=== PATIENT | male | born 1995 | race Caucasian/White ===

== ENCOUNTER → 2016-12-27 | Outpatient (CLI) | payer BC ==
[~2016-12-27] MED LIST: BENA25CA2 PO; CYCL5TA PO; GABA-282 PO; IBUP80TA PO; INDO50SU2 PR; LIDO5DIS41 TD; MELA1CAP2 PO; META1TAB22 PO; MULT1CHW21 PO; RANI150T PO; TRAM50TA2 PO; [UNRECOGNIZED DRUG - OTHER] PO; [UNRECOGNIZED DRUG - REMARK] INJ
--- NOTE | 2017-01-16 01:54 | ECWPNPC ---
PATIENT NAME: BISHNU DALLAS : 1995 GENDER: MALE VISIT DATE: 12/27/2016 DISCHARGE DATE: 12/27/16 1148 VISIT LOCKED DATE TIME: PHYSICIAN: KELLE VILLALBA RESOURCE: KELLE VILLALBA REASON FOR APPOINTMENT 1. CHEST HISTORY OF PRESENT ILLNESS TODAY'S VISIT: NOTES: HAS HAD CRYOTHERAPY X 1 SINCE LAST VISIT. GETS ABOUT 3-4 MONTHS.HAS HAD GOOD ROM OF LEFT SHOULDER. STILL HAS ISSUES WITH SLEEP.. CURRENT MEDICATIONS TAKING BENADRYL 25 MG CAPSULE 1 CAPSULE NEEDED ORALLY EVERY 6 HRS, NOTES: 06/01/16 2300 TAKING LIDODERM 5 % PATCH 1 PATCH TO INTACT SKIN REMOVE AFTER 12 HOURS EXTERNALLY ONCE A DAY, NOTES: 2 DAYS AGO TAKING MELATONIN 5 MG TABLET 1 TABLET AT BEDTIME NEEDED WITH FOOD ORALLY ONCE A DAY, NOTES: 06/01/16 2300 TAKING MULTIVITAMIN 1 TABLETS 1 TAB(S) ORALLY DAILY, NOTES: 1 WEEK TAKING IBUPROFEN 800 MG TABLET 1 TABLET ORALLY PRN, NOTES: 06/01/16 1400 TAKING ALBUTEROL SULFATE HFA 108 (90 BASE) MCG/ACT AEROSOL SOLUTION 2 PUFFS NEEDED INHALATION EVERY 4 HRS, NOTES: NONE RECENTLY TAKING TRAMADOL HCL 50 MG TABLET 1 TABLET NEEDED ORALLY EVERY 6- 8 HR SPRN PAIN MDD=3 TAKING ACETAMINOPHEN 325 MG TABLET 2 TABLETS NEEDED ORALLY EVERY 6 HRS NOT-TAKING METAXALONE 800 MG TABLET 1 TABLET ORALLY THREE TIMES A DAY, NOTES: 06/01/16 0900 NOT-TAKING TESSALON PERLES 100 MG CAPSULE 1 CAPSULE NEEDED ORALLY THREE TIMES A DAY MEDICATION LIST REVIEWED AND RECONCILED WITH THE PATIENT PAST MEDICAL HISTORY ASTHMA BROKEN LEFT WRIST COSTROCHODRITIS CONCUSSION ALLERGIES AUGMENTIN: HIVES: ALLERGY ENVIRONMENTAL: HIVES/DIFFICULTY BREATHING: ALLERGY REVIEW OF SYSTEMS FOLLOW-UP ROS: CARDIOLOGY: DENIES PALPITATIONS . INTEGUMENT NO UNUSUAL RASH OR CHANGING LESIONS . GASTROENTEROLOGY: NO NAUSEA, VOMITING, DIARRHEA, CONSTIPATION, MELENA, HEMATOCHEZIA . GI/ NEGATIVE FOR, ABDOMINAL PAIN, NAUSEA, VOMITING . NEUROLOGY: GOT STRUCK IN HEAD WITH CHAIR - CONCUSSION - HAS BEEN REFERRED TO NEUROLOGY . PSYCHOLOGY: NO RECENT DEPRESSED MOOD . VITAL SIGNS WT 200.6 LBS, HT 65 IN, BMI 33.38 INDEX, BP 142/76 MM HG, HR 75 /MIN, RR 18 /MIN, TEMP 98.0 F, OXYGEN SAT % 99%, NA INITIALS SC 10:48. ASSESSMENTS COSTOCHONDRITIS - M94.0 (PRIMARY) MYALGIA - M79.1 TREATMENT COSTOCHONDRITIS NOTES: CONTINUE TO FOLLOW WITH [facility] FOR CRYOTHERAPY. USE TRAMADOL NEEDED FOR PAIN. PROCEDURE CODES FA211 ESTABILISHED PATIENT [facility] CHARGE DISPOSITION & COMMUNICATION FOLLOW UP 6 MONTHS (REASON: CHEST WALL PAIN) ELECTRONICALLY SIGNED BY MUNDO AMOS ON 01/15/2017 AT 05:39 PM EDT DISCLAIMER : THIS IS A VISIT SUMMARY EXTRACTED FROM THE [employer] CHART. IT IS NOT A COPY OF THE [employer] PROGRESS NOTE. MALISSAD
== END ==
LOC: M PAIN 11:00
PROVIDERS: ATTEND Nurse Practitioner Family
DX: M94.0 Chondrocostal junction syndrome [Tietze] (principal); M79.1 Myalgia; Z79.899 Other long term (current) drug therapy; Z79.891 Long term (current) use of opiate analgesic; Z88.1 Allergy status to other antibiotic agents; J30.9 Allergic rhinitis, unspecified

== ENCOUNTER → 2017-05-09 | Outpatient (CLI) | payer BC ==
--- NOTE | 2017-05-31 02:02 | ECWPNPC ---
PATIENT NAME: BISHNU DALLAS : 1995 GENDER: MALE VISIT DATE: 05/09/2017 DISCHARGE DATE: 05/09/17 1024 VISIT LOCKED DATE TIME: PHYSICIAN: KELLE VILLALBA RESOURCE: KELLE VILLALBA REASON FOR APPOINTMENT 1. CHEST WALL PAIN HISTORY OF PRESENT ILLNESS HISTORY OF PRESENT ILLNESS: PAIN THE PATIENT DESCRIBES THE PAIN... FALL RISK SCREENING: SCREENING :NO FALLS IN THE PAST YEAR TODAY'S VISIT: NOTES: FOLLOWUP FR LEFT ANTEROR CHEST WALL PAIN. LAST CRYO DONE AT [facility] 3 MONTHS AGO AND IS DUE AGAIN ON 05/14/17. THE LAST TREATMENT LASTED ONLY ABOUT 1 MONTH AND HE CAN ONLY HAVE THIS EVERY 3 MONTHS. THEY HAD SUGGESTED 2 OPTIONS: MEDICAL MARIJUANA, ACCUPUNCTURE. THE PAIN IS AFFECTING HIS ABILITY TO FUNCTION IN TERMS OF ACTIVITY AND ABILITY TO SLEEP. . CURRENT MEDICATIONS TAKING BENADRYL 25 MG CAPSULE 1 CAPSULE NEEDED ORALLY EVERY 6 HRS, NOTES: 06/01/16 2300 TAKING LIDODERM 5 % PATCH 1 PATCH TO INTACT SKIN REMOVE AFTER 12 HOURS EXTERNALLY ONCE A DAY, NOTES: 2 DAYS AGO TAKING MELATONIN 5 MG TABLET 1 TABLET AT BEDTIME NEEDED WITH FOOD ORALLY ONCE A DAY, NOTES: 06/01/16 2300 TAKING MULTIVITAMIN 1 TABLETS 1 TAB(S) ORALLY DAILY, NOTES: 1 WEEK TAKING IBUPROFEN 800 MG TABLET 1 TABLET ORALLY PRN, NOTES: 06/01/16 1400 TAKING ALBUTEROL SULFATE HFA 108 (90 BASE) MCG/ACT AEROSOL SOLUTION 2 PUFFS NEEDED INHALATION EVERY 4 HRS, NOTES: NONE RECENTLY TAKING TRAMADOL HCL 50 MG TABLET 1 TABLET NEEDED ORALLY EVERY 6- 8 HR SPRN PAIN MDD=3 TAKING ACETAMINOPHEN 325 MG TABLET 2 TABLETS NEEDED ORALLY EVERY 6 HRS NOT-TAKING METAXALONE 800 MG TABLET 1 TABLET ORALLY THREE TIMES A DAY, NOTES: 06/01/16 0900 NOT-TAKING TESSALON PERLES 100 MG CAPSULE 1 CAPSULE NEEDED ORALLY THREE TIMES A DAY MEDICATION LIST REVIEWED AND RECONCILED WITH THE PATIENT PAST MEDICAL HISTORY ASTHMA BROKEN LEFT WRIST COSTROCHODRITIS CONCUSSION ALLERGIES AUGMENTIN: HIVES: ALLERGY ENVIRONMENTAL: HIVES/DIFFICULTY BREATHING: ALLERGY REVIEW OF SYSTEMS REVIEWED BY: PROVIDER: . CONSTITUTIONAL: ANY CHANGE IN YOUR MEDICAL CONDITION? NO . CHILLS NO . FEVER NO . INFECTION: DO YOU HAVE NEW INFECTIONS? NO . DO YOU HAVE HISTORY OF MRSA? NO . MUSCULOSKELETAL: ANY NEW PATTERNS OF PAIN OR NUMBNESS? NO . GASTROENTEROLOGY: ANY NEW CHANGE IN BOWEL CONTROL? NO . GENITOURINARY: ANY NEW CHANGE IN BLADDER CONTROL? NO . IS THERE A CHANCE YOU COULD BE ? NO . HEMATOLOGY/LYMPH: DO YOU TAKE ANY BLOOD THINNERS? (FOR EXAMPLE- COUMADIN, PLAVIX, AGGRENOX, PLATEL, PRADAXA, OR XARELTO) NO . WHEN WAS YOUR LAST DOSE? DATE: TIME: . NEUROLOGY: HAVE YOU FALLEN IN THE PAST 6 MONTHS? NO . ANY NEW EXTREMITY NUMBNESS OR WEAKNESS? NO . CARDIOLOGY: DO YOU HAVE A PACEMAKER OR DEFIBRILLATOR? NO . RESPIRATORY: HAVE YOU BEEN SICK IN THE PAST WEEK? NO . FEVER NO . FLU LIKE SYMPTOMS? NO . COUGH NO . INTEGUMENTARY: DO YOU HAVE ANY RASHES OR OPEN SORES? NO . ALLERGIC/IMMUNO: ARE YOU ALLERGIC TO SHELLFISH OR IV DYE? NO . ANY NEW ALLERGIES? NO . PSYCHIATRIC: DO YOU HAVE THOUGHTS OF HURTING YOURSELF OR SOMEONE ELSE? NO . ARE YOU ABUSED, NEGLECTED, OR IN AN UNSAFE ENVIRONMENT? NO . ENDOCRINOLOGY: ARE YOU DIABETIC? NO . OTHER: DO YOU NEED ANY PRESCRIPTIONS? NO . IF YES, PLEASE LIST: ____ . ANY NEW PROBLEMS WITH YOUR MEDICATIONS? NO . WHEN DID YOU LAST EAT? ____ . WHEN DID YOU LAST DRINK? ____ . WHAT DID YOU LAST DRINK? ____ . NAME OF PERSON DRIVING YOU HOME? ____ . DO YOU HAVE ANY OTHER QUESTIONS OR CONCERNS NO . VITAL SIGNS WT 210.8 LBS, HT 65 IN, BMI 35.08 INDEX, BP 123/60 MM HG, HR 85 /MIN, RR 18 /MIN, TEMP 97.8 F, OXYGEN SAT % 96%, SAFE IN ENV? (Y/N) YES, NA INITIALS LA 08:56, REVIEWED BY: SAWYER. ASSESSMENTS COSTOCHONDRITIS - M94.0 (PRIMARY) MYALGIA - M79.1 TREATMENT COSTOCHONDRITIS NOTES: DISCUSSED OPTION OF DORSAL COLUMN STIMULATOR AND SURGICAL EVALUATION FOR RELEASE OF NERVE AND PECTUS EXCAVATUM. RESEARCH MEDICAL MARIJUANA AND THC AND CBD. CONTACT DR PITTS REGARDING MEDICAL MARIJUANA FOR MORE INFORMATION. FOLLOW UP WITH [facility] FOR CRYO NEXT WEEK. KEEP MOVING LEFT ARMA ND SHOULDER. WATCH POSTURE. TALK TO PROVIDER ABOUT SLEEP ISSUES. PROCEDURE CODES FA211 ESTABILISHED PATIENT [facility] F[facility] CHARGE DISPOSITION & COMMUNICATION FOLLOW UP 1 MONTH (REASON: CHEST WALL PAIN) ELECTRONICALLY SIGNED BY MUNDO AMOS ON 05/29/2017 AT 08:33 AM EST DISCLAIMER : THIS IS A VISIT SUMMARY EXTRACTED FROM THE [employer] CHART. IT IS NOT A COPY OF THE [employer] PROGRESS NOTE. KEON
== END ==
LOC: M PAIN 08:45
PROVIDERS: ATTEND Nurse Practitioner Family
DX: M94.0 Chondrocostal junction syndrome [Tietze] (principal); M79.1 Myalgia; Z79.891 Long term (current) use of opiate analgesic; Z79.899 Other long term (current) drug therapy; Z88.1 Allergy status to other antibiotic agents; J30.9 Allergic rhinitis, unspecified

== ENCOUNTER → 2017-05-30 | Outpatient (CLI) | payer BC ==
--- NOTE | 2017-06-04 00:23 | ECWPNPC ---
PATIENT NAME: BISHNU DALLAS : 1995 GENDER: MALE VISIT DATE: 05/30/2017 DISCHARGE DATE: 05/30/17 0959 VISIT LOCKED DATE TIME: PHYSICIAN: KELLE VILLALBA RESOURCE: KELLE VILLALBA REASON FOR APPOINTMENT 1. CHEST WALL PAIN HISTORY OF PRESENT ILLNESS TODAY'S VISIT: NOTES: IS S/P CRYO 05/14/17 WITH EXCELLANT REPONSE. PAIN LEVEL TODAY 0/10. HAS EXCELLANT ROM BUT NOTES LEFT ARM IS WEAKER. SLEEP DECENT WITH PAIN UNDER CONTROL. CURRENT MEDICATIONS TAKING BENADRYL 25 MG CAPSULE 1 CAPSULE NEEDED ORALLY EVERY 6 HRS TAKING LIDODERM 5 % PATCH 1 PATCH TO INTACT SKIN REMOVE AFTER 12 HOURS EXTERNALLY ONCE A DAY TAKING MELATONIN 5 MG TABLET 1 TABLET AT BEDTIME NEEDED WITH FOOD ORALLY ONCE A DAY TAKING MULTIVITAMIN 1 TABLETS 1 TAB(S) ORALLY DAILY TAKING IBUPROFEN 800 MG TABLET 1 TABLET ORALLY PRN TAKING ALBUTEROL SULFATE HFA 108 (90 BASE) MCG/ACT AEROSOL SOLUTION 2 PUFFS NEEDED INHALATION EVERY 4 HRS TAKING TRAMADOL HCL 50 MG TABLET 1 TABLET NEEDED ORALLY EVERY 6- 8 HR SPRN PAIN MDD=3 TAKING ACETAMINOPHEN 325 MG TABLET 2 TABLETS NEEDED ORALLY EVERY 6 HRS UNKNOWN METAXALONE 800 MG TABLET 1 TABLET ORALLY THREE TIMES A DAY, NOTES: 06/01/16 0900 UNKNOWN TESSALON PERLES 100 MG CAPSULE 1 CAPSULE NEEDED ORALLY THREE TIMES A DAY MEDICATION LIST REVIEWED AND RECONCILED WITH THE PATIENT PAST MEDICAL HISTORY ASTHMA BROKEN LEFT WRIST COSTROCHODRITIS CONCUSSION ALLERGIES AUGMENTIN: HIVES: ALLERGY ENVIRONMENTAL: HIVES/DIFFICULTY BREATHING: ALLERGY SOCIAL HISTORY GENERAL: TOBACCO USE ARE YOU A:NONSMOKER CAFFEINE CAFFEINE USE?YES HOW OFTEN AND HOW MUCH? 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 LEARNING BARRIERS / SPECIAL NEEDS ORIENTED TO PLAN OF CARE: PATIENT, PAIN MANAGEMENT PATIENT, ORIENTED TO PLAN OF CARE: PATIENT, PAIN MANAGEMENT PATIENT. NEW PATIENT PAIN DIARY TODAY'S VISITNOTES FROM 0-10, WHAT LEVEL IS YOUR PAIN TODAY?0 PAIN CLINIC PFS, CLERGY, PUBLIC HEALTH REFERRALS PFS REFERRAL NEEDED?NO CLERGY REFERRAL NEEDED?NO PUBLIC HEALTH REFERRAL NEEDED?NO WAS THE PROVIDER NOTIFIED OF ANY PERTINENT INFO?NO HAS THE PATIENT BEEN EDUCATED REGARDING HIS/HER PLAN OF CARE?YES HAS THE PATIENT BEEN EDUCATED REGARDING PAIN, THE RISK FOR PAIN, THE IMPORTANCE OF EFFECTIVE PAIN MANAGEMENT, AND THE PAIN ASSESSMENT PROCESS?YES ADVANCE DIRECTIVES HEALTH CARE PROXY?NO WOULD YOU LIKE MORE INFORMATION?NO REVIEW OF SYSTEMS FOLLOW-UP ROS: GASTROENTEROLOGY: RECENT GI BUG WITH NAUSEA AND VOMITING . PULMONOLOGY: POSITIVE FOR, COUGH, NO CHEST PAIN WITH BREATHING . VITAL SIGNS WT 204.6 LBS, HT 65 IN, BMI 34.04 INDEX, BP 127/85 MM HG, HR 79 /MIN, RR 16 /MIN, TEMP 97.8 F, OXYGEN SAT % 98%, NA INITIALS TL 0913, REVIEWED BY: NL. EXAMINATION GENERAL EXAMINATION: LUNGS:CLEAR TO AUSCULTATION BILATERALLY, DECREASED RESPIRATORY EXCURSION. NO WHEEZES, RALES OR RHONCHI. HEART:HEART RATE REGULAR. MUSCULOSKELETAL:SHOULDERS FULL RANGE OF MOTION. MIN TRIGGER POINTS OVER LEFT SCAPULA. NO TENDERNESS OVER 2ND/3RD INTERCOSTAL SPACE, LEFT BORDER STERNUM. ABLE TO ABDUCT LEFT SHOULDER . ASSESSMENTS COSTOCHONDRITIS - M94.0 (PRIMARY) MYALGIA - M79.1 TREATMENT COSTOCHONDRITIS NOTES: KEEP EXERCISING /STRETCHING THE LEFT ARM. PROCEDURE CODES FA211 ESTABILISHED PATIENT [facility] CHARGE DISPOSITION & COMMUNICATION FOLLOW UP 2-3 MONTHS (REASON: CHEST WALL PAIN) ELECTRONICALLY SIGNED BY MUNDO AMOS ON 06/02/2017 AT 01:42 PM EST DISCLAIMER : THIS IS A VISIT SUMMARY EXTRACTED FROM THE [employer] CHART. IT IS NOT A COPY OF THE [employer] PROGRESS NOTE. KEON
== END ==
LOC: M PAIN 09:00
PROVIDERS: ATTEND Nurse Practitioner Family
DX: G89.29 Other chronic pain (principal); M94.0 Chondrocostal junction syndrome [Tietze]; M79.1 Myalgia; J45.909 Unspecified asthma, uncomplicated; Z88.1 Allergy status to other antibiotic agents; Z79.1 Long term (current) use of non-steroidal anti-inflammatories (NSAID); Z79.891 Long term (current) use of opiate analgesic; Z79.899 Other long term (current) drug therapy

== ENCOUNTER → 2017-07-04 | Outpatient (CLI) | payer BC | LOC: M PAIN 08:30 | DX: M94.0 Chondrocostal junction syndrome [Tietze] (principal); M79.1 Myalgia; J45.909 Unspecified asthma, uncomplicated; Z88.1 Allergy status to other antibiotic agents; Z79.899 Other long term (current) drug therapy | CPT/HCPCS: G0463 ==

== ENCOUNTER → 2017-08-08 | Outpatient (REF) | payer BC ==
[2017-08-08 20:18] LABS: INFLUENZA A AMPLIFICATION NEGATIVE (NEGATIVE); INFLUENZA B AMPLIFICATION NEGATIVE (NEGATIVE)
== END ==
LOC: M LAB REF 16:39
DX: R05 Cough (principal)

== ENCOUNTER → 2017-08-29 | Outpatient (CLI) | payer BC | LOC: M PAIN 10:00 | DX: M94.0 Chondrocostal junction syndrome [Tietze] (principal); J45.909 Unspecified asthma, uncomplicated; Z79.891 Long term (current) use of opiate analgesic; Z79.899 Other long term (current) drug therapy; Z88.1 Allergy status to other antibiotic agents | CPT/HCPCS: 71046 ==

== ENCOUNTER → 2017-09-12 | Outpatient (CLI) | payer BC | LOC: M PAIN 09:30 | DX: M94.0 Chondrocostal junction syndrome [Tietze] (principal); M79.1 Myalgia; Z79.891 Long term (current) use of opiate analgesic; Z79.899 Other long term (current) drug therapy; Z88.8 Allergy status to other drugs, medicaments and biological substances; J30.2 Other seasonal allergic rhinitis | CPT/HCPCS: G0463 ==

== ENCOUNTER → 2017-10-29 | Outpatient (CLI) | payer BC | LOC: M RAD 09:47 | DX: M94.0 Chondrocostal junction syndrome [Tietze] (principal) ==

== ENCOUNTER → 2017-12-11 | Outpatient (CLI) | payer BC ==
[~2017-12-11] MED LIST changes: -BENA25CA2 PO; +BUPIVACAINE HCL 0.25% 30 ML VIAL As Ordered; -CYCL5TA PO; -GABA-282 PO; -IBUP80TA PO; -INDO50SU2 PR; +ISOVUE-M 300 61% 15ML VIAL (Q9967) As Ordered; -LIDO5DIS41 TD; +LIDOCAINE 1% SDV INJ 30 ML VIAL As Ordered; -MELA1CAP2 PO; -META1TAB22 PO; -MULT1CHW21 PO; -RANI150T PO; -TRAM50TA2 PO; +TRIAMCINOLONE ACETONIDE SUSP 40 MG/ML VIAL (J3301) As Ordered; -[UNRECOGNIZED DRUG - OTHER] PO; -[UNRECOGNIZED DRUG - REMARK] INJ; +diazePAM 5 MG TAB As Ordered; +oxyCODONE 5MG TAB As Ordered
== END ==
LOC: M PAIN 11:00
DX: G89.29 Other chronic pain (principal); M94.0 Chondrocostal junction syndrome [Tietze]; E11.9 Type 2 diabetes mellitus without complications; I10 Essential (primary) hypertension; E78.00 Pure hypercholesterolemia, unspecified; F17.210 Nicotine dependence, cigarettes, uncomplicated; Z79.891 Long term (current) use of opiate analgesic; Z79.899 Other long term (current) drug therapy; Z88.2 Allergy status to sulfonamides; Z88.6 Allergy status to analgesic agent; Z87.820 Personal history of traumatic brain injury
CPT/HCPCS: J3301

== ENCOUNTER → 2018-01-08 | Outpatient (CLI) | payer BC | LOC: M PAIN 09:15 | DX: M94.0 Chondrocostal junction syndrome [Tietze] (principal); M79.1 Myalgia; J45.909 Unspecified asthma, uncomplicated; Z79.899 Other long term (current) drug therapy; Z88.1 Allergy status to other antibiotic agents; Z87.820 Personal history of traumatic brain injury | CPT/HCPCS: G0463 ==

== ENCOUNTER → 2018-04-01 | Outpatient (CLI) | payer BC | LOC: M PAIN 09:00 | DX: M94.0 Chondrocostal junction syndrome [Tietze] (principal); M79.10 Myalgia, unspecified site; J45.909 Unspecified asthma, uncomplicated; Z79.891 Long term (current) use of opiate analgesic; Z79.899 Other long term (current) drug therapy; Z88.8 Allergy status to other drugs, medicaments and biological substances | CPT/HCPCS: G0463 ==

== ENCOUNTER → 2018-04-16 | Outpatient (CLI) | payer BC | LOC: M PAIN 11:00 | DX: M94.0 Chondrocostal junction syndrome [Tietze] (principal); J45.909 Unspecified asthma, uncomplicated; Z79.899 Other long term (current) drug therapy; Z88.1 Allergy status to other antibiotic agents | CPT/HCPCS: J3301 ==

== ENCOUNTER → 2018-11-14 | Outpatient (CLI) | payer OTHER ==
[~2018-11-14] MED LIST changes: +BENA25CA2 PO; -BUPIVACAINE HCL 0.25% 30 ML VIAL As Ordered; +CYCL5TAB5 PO; +GABA-843 PO; +IBUP80TA PO; +INDO50SU2 PR; -ISOVUE-M 300 61% 15ML VIAL (Q9967) As Ordered; +LIDO5DIS41 TD; -LIDOCAINE 1% SDV INJ 30 ML VIAL As Ordered; +MELA1CAP2 PO; +META1TAB22 PO; +MULT1CHW21 PO; +RANI150T PO; +TRAM50TA2 PO; -TRIAMCINOLONE ACETONIDE SUSP 40 MG/ML VIAL (J3301) As Ordered; +[UNRECOGNIZED DRUG - OTHER] PO; +[UNRECOGNIZED DRUG - REMARK] INJ; -diazePAM 5 MG TAB As Ordered; -oxyCODONE 5MG TAB As Ordered
--- NOTE | 2018-12-03 01:05 | ECWPNPC ---
PATIENT NAME: BISHNU DALLAS : 1995 GENDER: MALE VISIT DATE: 11/14/2018 DISCHARGE DATE: 11/14/18 1515 VISIT LOCKED DATE TIME: PHYSICIAN: PAGE JOHN RESOURCE: PAGE JOHN REASON FOR APPOINTMENT 1. SW PT, CHEST WALL PAIN- POST PROCEDURE HISTORY OF PRESENT ILLNESS HISTORY OF PRESENT ILLNESS: HERE FOR F/U OF CHRONIC LEFT ANTERIOR LEFT CHEST WALL PAIN.HAS RESPONDED WELL TO INTERCOSTAL STEROID INJECTIONS IN PAST.RATING PAIN VAS 7/10.THIS BEGAN SEVERAL YEARS AGO SEVERAL YEARS AGO WITHOUT PRECIPITATING EVENT.STATES HE CANT MOVE LEFT ARM WITHOUT SEVERE PAIN.STATES HE HAS BEEN TO MANY SPECIALISTS OVER THE PAST FEW YEARS AND NO SURGICAL INTERVENTION HAS BEEN SUGGESTED ACCORDING TO PATIENT. PAIN THE PATIENT DESCRIBES THE PAIN... FALL RISK SCREENING: SCREENING :NO FALLS REPORTED IN THE LAST YEAR CURRENT MEDICATIONS TAKING BENADRYL 25 MG CAPSULE 1 CAPSULE NEEDED ORALLY EVERY 6 HRS, NOTES: NONE LATELY TAKING MELATONIN 5 MG TABLET 1 TABLET AT BEDTIME NEEDED WITH FOOD ORALLY ONCE A DAY, NOTES: 04/15/18 TAKING ALBUTEROL SULFATE HFA 108 (90 BASE) MCG/ACT AEROSOL SOLUTION 2 PUFFS NEEDED INHALATION EVERY 4 HRS, NOTES: 04/15/18 TAKING TIZANIDINE HCL 4 MG TABLET 1 /2 - 1 TABLET NEEDED ORALLY BID, NOTES: 04/15/18 TAKING IBUPROFEN 600 MG TABLET 1 TABLET WITH FOOD OR MILK NEEDED ORALLY THREE TIMES A DAY, NOTES: 04/13/18 TAKING MULTIVITAMIN 1 TABLETS 1 TAB(S) ORALLY DAILY, NOTES: 04/15/18 TAKING DEXTROAMPHETAMINE SULFATE ER 10 MG CAPSULE EXTENDED RELEASE 24 HOUR 2 TABS ORALLY DAILY TAKING PROZAC 40 MG CAPSULE 1 CAPSULE ORALLY ONCE A DAY TAKING CLONIDINE HCL 0.1 MG TABLET 1 TABLET AT BEDTIME ORALLY ONCE A DAY TAKING ACETAMINOPHEN 325 MG TABLET 2 TABLETS NEEDED ORALLY EVERY 6 HRS NOT-TAKING LIDODERM 5 % PATCH 1 PATCH TO INTACT SKIN REMOVE AFTER 12 HOURS EXTERNALLY ONCE A DAY NEEDED, NOTES: LAST WEEK NOT-TAKING TRAMADOL HCL 50 MG TABLET 1 TABLET NEEDED ORALLY EVERY 6- 8 HR SPRN PAIN MDD=3, NOTES: NONE LATELY NOT-TAKING TESSALON PERLES 100 MG CAPSULE 1 CAPSULE NEEDED ORALLY THREE TIMES A DAY, NOTES: LAST MONTH NOT-TAKING IBUPROFEN 200 MG TABLET 4 TABLETS ORALLY DAILY NEEDED NOT-TAKING METAXALONE 800 MG TABLET 1 TABLET ORALLY THREE TIMES A DAY MEDICATION LIST REVIEWED AND RECONCILED WITH THE PATIENT PAST MEDICAL HISTORY ASTHMA BROKEN LEFT WRIST COSTROCHODRITIS CONCUSSION ADD DEPRESSION ANXIETY ALLERGIES AUGMENTIN: HIVES - ALLERGY ENVIRONMENTAL: HIVES/DIFFICULTY BREATHING - ALLERGY SURGICAL HISTORY NO SURGICAL HISTORY DOCUMENTED. FAMILY HISTORY FATHER: ALIVE 57 YRS MOTHER: ALIVE 57 YRS SIBLINGS: ALIVE 27 YRS, BIPOLAR 1 BROTHER(S) . SOCIAL HISTORY GENERAL: TOBACCO USE ARE YOU A: NONSMOKER. PAIN CLINIC PFS, CLERGY, PUBLIC HEALTH REFERRALS PFS REFERRAL NEEDED?NO CLERGY REFERRAL NEEDED?NO PUBLIC HEALTH REFERRAL NEEDED?NO WAS THE PROVIDER NOTIFIED OF ANY PERTINENT INFO?NO HAS THE PATIENT BEEN EDUCATED REGARDING HIS/HER PLAN OF CARE?YES HAS THE PATIENT BEEN EDUCATED REGARDING PAIN, THE RISK FOR PAIN, THE IMPORTANCE OF EFFECTIVE PAIN MANAGEMENT, AND THE PAIN ASSESSMENT PROCESS?YES CAFFEINE CAFFEINE USE?YES HOW OFTEN AND HOW MUCH? DAILY [place] [employer]W ADVANCE DIRECTIVE ADVANCE DIRECTIVE DISCUSSED WITH PATIENT:YES STATES NO ADVANCED DIRECTIVE, DECLINES INFORMATION OR ASSISTANCE AT THIS TIME DIET: REGULAR. MUSLIM [id number] MANDAEISM NO YARSANI BELIEFS THAT WOULD IMPACT HEALTH CARE. LANGUAGE LANGUAGES SPOKEN:SURINAMESE NEW PATIENT PAIN DIARY TODAY'S VISIT NOTES, FROM 0-10, WHAT LEVEL IS YOUR PAIN TODAY? 0. RECREATIONAL DRUG USE DRUG USE?YES MARIJUANA, DAILY FOR PAIN LEARNING BARRIERS / SPECIAL NEEDS ORIENTED TO PLAN OF CARE: PATIENT, PAIN MANAGEMENT PATIENT, ORIENTED TO PLAN OF CARE: PATIENT, PAIN MANAGEMENT PATIENT. REVIEWED WITH PATIENT 04/01/18 0920 JSREVIEWED WITH PATIENT 11/14/18 1435 LAS. HOSPITALIZATION/MAJOR DIAGNOSTIC PROCEDURE NO HOSPITALIZATION HISTORY. REVIEW OF SYSTEMS REVIEWED BY: PROVIDER: PAGE ACEVEDO . CONSTITUTIONAL: ANY CHANGE IN YOUR MEDICAL CONDITION? NO . CHILLS NO . FEVER NO . INFECTION: DO YOU HAVE NEW INFECTIONS? NO . DO YOU HAVE HISTORY OF MRSA? NO . MUSCULOSKELETAL: ANY NEW PATTERNS OF PAIN OR NUMBNESS? NO . GASTROENTEROLOGY: ANY NEW CHANGE IN BOWEL CONTROL? NO . GENITOURINARY: ANY NEW CHANGE IN BLADDER CONTROL? NO . IS THERE A CHANCE YOU COULD BE ? NO . HEMATOLOGY/LYMPH: DO YOU TAKE ANY BLOOD THINNERS? (FOR EXAMPLE- COUMADIN, PLAVIX, AGGRENOX, PLATEL, PRADAXA, OR XARELTO) NO . WHEN WAS YOUR LAST DOSE? DATE: TIME: . NEUROLOGY: HAVE YOU FALLEN IN THE PAST 12 MONTHS? NO . ANY NEW EXTREMITY NUMBNESS OR WEAKNESS? NO . CARDIOLOGY: DO YOU HAVE A PACEMAKER OR DEFIBRILLATOR? NO . RESPIRATORY: HAVE YOU BEEN SICK IN THE PAST WEEK? NO . FEVER NO . FLU LIKE SYMPTOMS? NO . COUGH NO . INTEGUMENTARY: DO YOU HAVE ANY RASHES OR OPEN SORES? NO . ALLERGIC/IMMUNO: ARE YOU ALLERGIC TO IV DYE? NO . ANY NEW ALLERGIES? NO . PSYCHIATRIC: DO YOU HAVE THOUGHTS OF HURTING YOURSELF OR SOMEONE ELSE? NO . ARE YOU ABUSED, NEGLECTED, OR IN AN UNSAFE ENVIRONMENT? NO . ENDOCRINOLOGY: ARE YOU DIABETIC? NO . OTHER: DO YOU NEED ANY PRESCRIPTIONS? NO . IF YES, PLEASE LIST: ____ . ANY NEW PROBLEMS WITH YOUR MEDICATIONS? NO . WHEN DID YOU LAST EAT? ____ . WHEN DID YOU LAST DRINK? ____ . WHAT DID YOU LAST DRINK? ____ . NAME OF PERSON DRIVING YOU HOME? ____ . DO YOU HAVE ANY OTHER QUESTIONS OR CONCERNS NO . VITAL SIGNS WT 176.8 LBS, HT 65 IN, BMI 29.42 INDEX, BP 131/77 MM HG, HR 94 /MIN, RR 16 /MIN, TEMP 98.4 F, OXYGEN SAT % 98%, SAFE IN ENV? (Y/N) YES, NA INITIALS VT 14:36, REVIEWED BY: VALERIE. EXAMINATION GENERAL EXAMINATION: PSYCHALERT , ORIENTED X 3 , APPROPRIATE MOOD AND AFFECT . CHEST:EXQ TENDERNESS OVER LEFT 2ND/3RD INTECOSTAL SPACE SPACE JUST LEFT OF THE STERNUM . LUNGS:CLEAR TO AUSCULTATION BILATERALLY. REPORTS PAIN WITH DEEP BREATH. HEART:HEART RATE REGULAR, NORMAL S1S2. MUSCULOSKELETAL:TRIGGER POINTS:LEFT TRAPEZIUS AND SUPRASCALENE MUSCLES. 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 LIMITED ROM AT LEFT AC JOINT SECONDARY TO CHEST WALL PAIN. NEUROLOGIC EXAM:NO SENSORY DEFICIT OVER NECK, CHAST WALL OR UPPER ARMS. ASSESSMENTS COSTOCHONDRITIS - M94.0 (PRIMARY) TREATMENT COSTOCHONDRITIS REFILL TIZANIDINE HCL TABLET, 4 MG, 1 /2 - 1 TABLET NEEDED, ORALLY, ONCE DAILY, 30 DAYS, 30, REFILLS 2, NOTES: 04/15/18 NOTES: LEFT COSTOCHONDRAL JUNCTION INJECTION. PROCEDURE CODES FA211 ESTABILISHED PATIENT [facility] CHARGE DISPOSITION & COMMUNICATION FOLLOW UP POST (REASON: LEFT COSTOCHONDRAL JUNCTION INJECTION) ELECTRONICALLY SIGNED BY PAGE ACEVEDO, CURTIS ON 12/02/2018 AT 01:55 PM EDT DISCLAIMER : THIS IS A VISIT SUMMARY EXTRACTED FROM THE [employer] CHART. IT IS NOT A COPY OF THE [employer] PROGRESS NOTE. KEON
== END ==
LOC: M PAIN 14:30
PROVIDERS: ATTEND Nurse Practitioner Family
DX: M94.0 Chondrocostal junction syndrome [Tietze] (principal); G89.29 Other chronic pain; J45.909 Unspecified asthma, uncomplicated; Z79.899 Other long term (current) drug therapy; Z88.1 Allergy status to other antibiotic agents; Z86.59 Personal history of other mental and behavioral disorders; Z87.820 Personal history of traumatic brain injury

== ENCOUNTER → 2018-12-19 | Outpatient (CLI) | payer OTHER ==
[~2018-12-19] MED LIST changes: +BUPIVACAINE HCL 0.25% 30 ML VIAL As Ordered ONE; +ISOVUE-M 300 61% 15ML VIAL (Q9967) As Ordered ONE; +LIDOCAINE 1% SDV INJ 30 ML VIAL As Ordered ONE; +TRIAMCINOLONE ACETONIDE SUSP 40 MG/ML VIAL (J3301) As Ordered ONE; +diazePAM 5 MG TAB As Ordered ONE; +oxyCODONE 5MG TAB As Ordered ONE
--- NOTE | 2018-12-19 17:22 | REP ---
Chest x-ray: Three views. History: Post procedure, rule out pneumothorax. Comparison study: April 16, 2018. Findings: Inspiratory and expiratory PA views and a lateral view are obtained as requested. These show no evidence of pneumothorax or hydrothorax. Mediastinum is not widened. Heart is not enlarged. No infiltrate is seen. 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 This is unchanged. No other bony abnormality is seen. Impression: No evidence of pneumothorax or other complication. No active disease. Electronically Signed by Felipe Krishnamurthy MD 12/19/2018 05:14 P
--- NOTE | 2018-12-19 17:36 | REP ---
C-ARM VIEW CHEST: A C-ARM view of the chest is performed during costochondral injection by Dr. Howell. The needle is seen and contrast is injected. 13 seconds of fluoroscopy time utilized. Electronically Signed by Neal Magallanes MD 12/20/2018 09:22 A
--- NOTE | 2018-12-31 01:20 | ECWPNPC ---
PATIENT NAME: BISHNU DALLAS : 1995 GENDER: MALE VISIT DATE: 12/19/2018 DISCHARGE DATE: 12/19/181738 VISIT LOCKED DATE TIME: PHYSICIAN: JESSICA RICHARDS MD RESOURCE: JESSICA RICHARDS MD REASON FOR APPOINTMENT 1. LEFT COSTOCHONDRAL JUNCTION INJECTION HISTORY OF PRESENT ILLNESS HISTORY OF PRESENT ILLNESS: PAIN THE PATIENT DESCRIBES THE PAIN... FALL RISK SCREENING: SCREENING :NO FALLS REPORTED IN THE LAST YEAR CURRENT MEDICATIONS TAKING BENADRYL 25 MG CAPSULE 1 CAPSULE NEEDED ORALLY EVERY 6 HRS, NOTES: 12/18/182199 TAKING MELATONIN 5 MG TABLET 1 TABLET AT BEDTIME NEEDED WITH FOOD ORALLY ONCE A DAY, NOTES: 12/18/182199 TAKING ALBUTEROL SULFATE HFA 108 (90 BASE) MCG/ACT AEROSOL SOLUTION 2 PUFFS NEEDED INHALATION EVERY 4 HRS, NOTES: FEW WEEKS AGO TAKING IBUPROFEN 600 MG TABLET 1 TABLET WITH FOOD OR MILK NEEDED ORALLY THREE TIMES A DAY, NOTES: 12/18/18 1200 TAKING MULTIVITAMIN 1 TABLETS 1 TAB(S) ORALLY DAILY, NOTES: WEEKS AGO TAKING DEXTROAMPHETAMINE SULFATE ER 10 MG CAPSULE EXTENDED RELEASE 24 HOUR 2 TABS ORALLY DAILY, NOTES: 0600 TAKING CLONIDINE HCL 0.1 MG TABLET 1 TABLET AT BEDTIME ORALLY ONCE A DAY, NOTES: LAST SUNDAY TAKING ACETAMINOPHEN 325 MG TABLET 2 TABLETS NEEDED ORALLY EVERY 6 HRS, NOTES: NONE RECENT TAKING TIZANIDINE HCL 4 MG TABLET 1 /2 - 1 TABLET NEEDED ORALLY ONCE DAILY, NOTES: 12/18/182199 TAKING FLUOXETINE HCL 40 MG CAPSULE 1 CAPSULE ORALLY ONCE A DAY, NOTES: 12/18/182199 TAKING BUSPIRONE HCL 5 MG TABLET 1 TABLET ORALLY DAILY, NOTES: 12/18/182199 TAKING AMITRIPTYLINE HCL 25 MG TABLET 1 TABLET AT BEDTIME ORALLY ONCE A DAY, NOTES: 12/18/182199 NOT-TAKING PROZAC 40 MG CAPSULE 1 CAPSULE ORALLY ONCE A DAY, NOTES: DUPLICATE NOT-TAKING LIDODERM 5 % PATCH 1 PATCH TO INTACT SKIN REMOVE AFTER 12 HOURS EXTERNALLY ONCE A DAY NEEDED, NOTES: LAST WEEK NOT-TAKING TRAMADOL HCL 50 MG TABLET 1 TABLET NEEDED ORALLY EVERY 6- 8 HR SPRN PAIN MDD=3, NOTES: NONE LATELY NOT-TAKING TESSALON PERLES 100 MG CAPSULE 1 CAPSULE NEEDED ORALLY THREE TIMES A DAY, NOTES: LAST MONTH NOT-TAKING IBUPROFEN 200 MG TABLET 4 TABLETS ORALLY DAILY NEEDED NOT-TAKING METAXALONE 800 MG TABLET 1 TABLET ORALLY THREE TIMES A DAY MEDICATION LIST REVIEWED AND RECONCILED WITH THE PATIENT PAST MEDICAL HISTORY ASTHMA BROKEN LEFT WRIST COSTROCHODRITIS CONCUSSION ADD DEPRESSION ANXIETY ALLERGIES AUGMENTIN: HIVES - ALLERGY ENVIRONMENTAL: HIVES/DIFFICULTY BREATHING - ALLERGY SURGICAL HISTORY DENIES PAST SURGICAL HISTORY FAMILY HISTORY FATHER: ALIVE 57 YRS MOTHER: ALIVE 57 YRS SIBLINGS: ALIVE 27 YRS, BIPOLAR 1 BROTHER(S) . SOCIAL HISTORY GENERAL: TOBACCO USE ARE YOU A: NONSMOKER. PAIN CLINIC PFS, CLERGY, PUBLIC HEALTH REFERRALS PFS REFERRAL NEEDED?NO CLERGY REFERRAL NEEDED?NO PUBLIC HEALTH REFERRAL NEEDED?NO WAS THE PROVIDER NOTIFIED OF ANY PERTINENT INFO?NO HAS THE PATIENT BEEN EDUCATED REGARDING HIS/HER PLAN OF CARE?YES HAS THE PATIENT BEEN EDUCATED REGARDING PAIN, THE RISK FOR PAIN, THE IMPORTANCE OF EFFECTIVE PAIN MANAGEMENT, AND THE PAIN ASSESSMENT PROCESS?YES LATEX QUESTIONNAIRE LATEX ALLERGY : HAVE YOU EVER DEVELOPED ANY TYPE OF REACTION AFTER HANDLING LATEX PRODUCTS SUCH RUBBER GLOVES, CONDOMS, DIAPHRAGMS, BALLOONS, SOCKS, OR UNDERWEAR?NO LATEX ALLERGY : HAVE YOU EVER DEVELOPED ANY TYPE OF REACTION DURING OR AFTER DENTAL APPOINTMENT, VAGINAL/RECTAL EXAMINATION, SURGICAL PROCEDURE, OR ANY OTHER EXPOSURE?NO LATEX RISK : HAVE YOU EVER HAD ANY DIFFICULTY BREATHING OR HIVES AFTER EATING OR HANDLING ANY FRUITS, OR VEGETABLES; SUCH KIWI, BANANAS, STONE FRUITS, OR CHESTNUTSNO LATEX RISK : DO YOU HAVE A PREVIOUS PERSONAL HISTORY OF MORE THAN NINE SURGERIES, SPINA BIFIDA, OR REPEATED CATHERTIZATIONS? NO LATEX RISK : ARE YOU FREQUENTLY EXPOSED TO LATEX PRODUCTS IN YOUR OCCUPATION?NO DATE ASKED : 12/19/2018 CAFFEINE CAFFEINE USE?YES HOW OFTEN AND HOW MUCH? DAILY [place] ADVANCE DIRECTIVE ADVANCE DIRECTIVE DISCUSSED WITH PATIENT:YES STATES NO ADVANCED DIRECTIVE, DECLINES HCP INFORMATION OR ASSISTANCE AT THIS TIME. DIET: REGULAR. [employer] [id number] UATSDIN NO [employer] BELIEFS THAT WOULD IMPACT HEALTH CARE. LANGUAGE LANGUAGES SPOKEN:MONGOLIAN NEW PATIENT PAIN DIARY TODAY'S VISIT NOTES, FROM 0-10, WHAT LEVEL IS YOUR PAIN TODAY? 0. RECREATIONAL DRUG USE DRUG USE?YES MARIJUANA, DAILY FOR PAIN LEARNING BARRIERS / SPECIAL NEEDS ORIENTED TO PLAN OF CARE: PATIENT, PAIN MANAGEMENT PATIENT, ORIENTED TO PLAN OF CARE: PATIENT, PAIN MANAGEMENT PATIENT. REVIEWED WITH PATIENT 04/01/18 0920 JSREVIEWED WITH PATIENT 11/14/18 1435 LASREVIEWED WITH PATIENT 12/19/18 1440 JS. HOSPITALIZATION/MAJOR DIAGNOSTIC PROCEDURE DENIES PAST HOSPITALIZATION REVIEW OF SYSTEMS REVIEWED BY: PROVIDER: . CONSTITUTIONAL: ANY CHANGE IN YOUR MEDICAL CONDITION? NO . CHILLS NO . FEVER NO . INFECTION: DO YOU HAVE NEW INFECTIONS? NO . DO YOU HAVE HISTORY OF MRSA? NO . MUSCULOSKELETAL: ANY NEW PATTERNS OF PAIN OR NUMBNESS? NO . GASTROENTEROLOGY: ANY NEW CHANGE IN BOWEL CONTROL? NO . GENITOURINARY: ANY NEW CHANGE IN BLADDER CONTROL? NO . IS THERE A CHANCE YOU COULD BE ? NO . HEMATOLOGY/LYMPH: DO YOU TAKE ANY BLOOD THINNERS? (FOR EXAMPLE- COUMADIN, PLAVIX, AGGRENOX, PLATEL, PRADAXA, OR XARELTO) NO . WHEN WAS YOUR LAST DOSE? DATE: TIME: . NEUROLOGY: HAVE YOU FALLEN IN THE PAST 12 MONTHS? NO . ANY NEW EXTREMITY NUMBNESS OR WEAKNESS? NO . CARDIOLOGY: DO YOU HAVE A PACEMAKER OR DEFIBRILLATOR? NO . RESPIRATORY: HAVE YOU BEEN SICK IN THE PAST WEEK? NO . FEVER NO . FLU LIKE SYMPTOMS? NO . COUGH NO . INTEGUMENTARY: DO YOU HAVE ANY RASHES OR OPEN SORES? NO . ALLERGIC/IMMUNO: ARE YOU ALLERGIC TO IV DYE? NO . ANY NEW ALLERGIES? NO . PSYCHIATRIC: DO YOU HAVE THOUGHTS OF HURTING YOURSELF OR SOMEONE ELSE? NO . ARE YOU ABUSED, NEGLECTED, OR IN AN UNSAFE ENVIRONMENT? NO . ENDOCRINOLOGY: ARE YOU DIABETIC? NO . OTHER: DO YOU NEED ANY PRESCRIPTIONS? NO . IF YES, PLEASE LIST: ____ . ANY NEW PROBLEMS WITH YOUR MEDICATIONS? NO . WHEN DID YOU LAST EAT? ____12/18/18 2200 . WHEN DID YOU LAST DRINK? ____12/19/18 0700 . WHAT DID YOU LAST DRINK? ____GATORADE . NAME OF PERSON DRIVING YOU HOME? ____DOMINGA DALLAS . DO YOU HAVE ANY OTHER QUESTIONS OR CONCERNS NO . VITAL SIGNS WT 188.6 LBS, HT 65 IN, BMI 31.38 INDEX, BP 127/83 MM HG, HR 101 /MIN, RR 16 /MIN, TEMP 98.6 F, OXYGEN SAT % 98%, SAFE IN ENV? (Y/N) YES, NA INITIALS SC13:19, REVIEWED BY: ARON. EXAMINATION CARDIOLOGY, GENERAL: GENERAL APPEARANCE:PLEASANT, NAD. HEENT:UNREMARKABLE. JVD:FLAT. HEART SOUNDS:REGULAR, NORMAL S1, S2, NO S3 OR S4. MURMUR, CLICK, GALLOP:ABSENT. LUNGS:CLEAR, NO RALES OR WHEEZES. ABDOMEN:SOFT, NO HEPATOMEGALY, NO MASSES FELT. EXTREMITIES:NO LEG EDEMA. PERIPHERAL PULSES:2 PLUS BILATERAL. 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 PROCEDURES PRE-PROCEDURE DIAGNOSIS: COSTOCHONDRITIS. CHEST WALL PAINPOST-PROCEDURE DIAGNOSIS: COSTOCHONDRITIS. CHEST WALL PAINPROCEDURE: INJECTION AT THE LEFT COSTOCHONDRAL JUNCTION UNDER FLUOROSCOPIC GUIDANCE.SURGEON: JESSICA RICHARDS MDANESTHESIA: LOCALCOMPLICATIONS: NONEPRE-PROCEDURE NOTE: THE PATIENT IS SUFFERING OF CHEST WALL PAIN. WE HAVE DISCUSSED ALTERNATIVES. I REVIEWED THE CHART. WE BOTH AGREED ON DOING AN INJECTION OVER THE COSTOCHONDRAL JUNCTION AT AFFECTED AREA. I WENT THROUGH THE RISK ALTERNATIVES AND BENEFITS ASSOCIATED WITH THIS PROCEDURE AND THE PATIENT EXPRESSED THAT WANT TO PROCEED. THE PATIENT IS AWARE THAT THE MAIN POTENTIAL COMPLICATION IS THE DEVELOPMENT OF A PNEUMOTHORAX, IN WHICH CASE A CHEST TUBE WILL BE NEEDED. THE PATIENT DENIES UNEXPLAINABLE WEIGHT LOSS FEVER CHILLS NEW CHANGES IN THE URINARY OR BOWEL CONTROL.PROCEDURE NOTE: THE CONSENT WAS REVIEWED WITH THE PATIENT. PATIENT WAS BROUGHT TO THE PROCEDURE ROOM AND PLACED IN THE SUPINE POSITION. THE ANTERIOR CHEST AREA WAS CLEANED WITH CHLORAPREP SOLUTION AND A DRAPED ASEPTICALLY. PROCEDURE WAS UNDER STANDARD STERILE CONDITIONS. UNDER FLUOROSCOPIC GUIDANCE TARGET POINT WAS SELECTED AT THE LEFT JUNCTION OF THE STERNUM WITH THE THORAXIC CARTILAGE. I USED AN ULTRASOUND TO VERIFY THE POSITION OF THE JUNCTION AND FOR SAFETY. LIDOCAINE WAS USED LOCAL ANESTHETIC. 22 G ULTRASOUND NEEDLE WAS ADVANCED UNDER ULTRASOUND GUIDANCE UNTIL I TOUCHED THE AFFECTED LEFT JUNCTION OF THE STERNUM WITH THE LEFT CRATILAGE. ISOVUE-M 30% THE QUARTER CC WAS INJECTED SHOWING ADEQUATE SPREAD OF THE DYE UNDER FLUOROSCOPY. THEN A SOLUTION OF 10 ML OF BUPIVACAINE 0.125% WITH KENALOG 10 MG WAS INJECTED UNDER ULTRASOUND. THERE WAS NO EVIDENCE OF VASCULAR UPTAKE OR LUNG PUNCTURE. PATIENT WAS SENT TO THE RECOVERY ROOM. PATIENT WAS DOING WELL THERE WAS NO COMPLICATIONS. FLUOROSCOPIC TIME WAS 13 SECONDS.POST-PROCEDURE NOTE: I DISCUSSED ALTERNATIVES WITH THE PATIENT. CHECK A AP AND LATERAL WERE DONE. THERE IS NO EVIDENCE OF PNEUMOTHORAX. PATIENT IS GOING TO BE SEEN IN A FOLLOW-UP. THERE WERE NO COMPLICATIONS DURING THE PROCEDURE. I, MADISON SYKES, DOCUMENTED THE ABOVE INFORMATION ACTING A SCRIBE FOR DR. RICHARDS. I HAVE REVIEWED THE ABOVE DOCUMENT, WRITTEN BY MADISON SYKES SCRIBE AND I VERIFY THAT IT IS ACCURATE. PROCEDURE CODES 6045F RADXPS IN END [id number] PXD [id number] NEEDLE LOCALIZATION BY XRAY, MODIFIERS: 26 DRAIN/INJ JOINT/BURSA W/O US, MODIFIERS: 50 DISPOSITION & COMMUNICATION FOLLOW UP 3 WEEKS ELECTRONICALLY SIGNED BY JESSICA RICHARDS MD, MD ON 12/30/2018 AT 01:08 PM EDT DISCLAIMER : THIS IS A VISIT SUMMARY EXTRACTED FROM THE [facility] CHART. IT IS NOT A COPY OF THE [facility] PROGRESS NOTE. MTDD
== END ==
LOC: M PAIN 13:15
PROVIDERS: ATTEND Anesthesiology
DX: M94.0 Chondrocostal junction syndrome [Tietze] (principal); J45.909 Unspecified asthma, uncomplicated; F32.9 Major depressive disorder, single episode, unspecified; F41.9 Anxiety disorder, unspecified; F98.8 Other specified behavioral and emotional disorders with onset usually occurring in childhood and adolescence; Z79.899 Other long term (current) drug therapy; Z88.1 Allergy status to other antibiotic agents
CPT/HCPCS: 20605; 71046; 77002; J3301; Q9967

== ENCOUNTER → 2019-12-29 | Outpatient (REF) | payer OTHER ==
[~2019-12-29] MED LIST changes: -BUPIVACAINE HCL 0.25% 30 ML VIAL As Ordered ONE; -ISOVUE-M 300 61% 15ML VIAL (Q9967) As Ordered ONE; -LIDOCAINE 1% SDV INJ 30 ML VIAL As Ordered ONE; -TRIAMCINOLONE ACETONIDE SUSP 40 MG/ML VIAL (J3301) As Ordered ONE; -diazePAM 5 MG TAB As Ordered ONE; -oxyCODONE 5MG TAB As Ordered ONE
[2019-12-29 12:45] LABS: HEMATOCRIT 49.7 % (42.0-52.0); HEMOGLOBIN 17.1 g/dl (13.5-17.5); MEAN CORPUSCULAR HEMOGLOBIN 29.7 pg (27.0-33.0); MEAN CORPUSCULAR HGB CONC 34.4 g/dl (32.0-36.5); MEAN CORPUSCULAR VOLUME 86.3 fl (80.0-96.0); PLATELET COUNT, AUTOMATED 254 10^3/uL (150-450); RED BLOOD COUNT 5.76 10^6/uL (4.30-6.10); WHITE BLOOD COUNT 8.4 10^3/uL (4.0-10.0)
[2019-12-29 13:01] LABS: ALBUMIN 4.2 GM/DL (3.2-5.2); ALT/SGPT 46 U/L (12-78); BILIRUBIN,TOTAL 0.4 MG/DL (0.2-1.0); BLOOD UREA NITROGEN 10 MG/DL (7-18); CALCIUM LEVEL 9.8 MG/DL (8.5-10.1); CARBON DIOXIDE LEVEL 29 MEQ/L (21-32); CHLORIDE LEVEL 103 MEQ/L (98-107); CHOLESTEROL LEVEL 168 MG/DL (<200); CHOLESTEROL RISK RATIO 5.419 (<5); CREATININE FOR GFR 0.96 MG/DL (0.70-1.30); GLOMERULAR FILTRATION RATE > 60.0 (>60); GLUCOSE, FASTING 92 MG/DL (70-100); HDL CHOLESTEROL 31 MG/DL (>40); LDL CHOLESTEROL 107 MG/DL (<100); NON-HDL-C 137 MG/DL; POTASSIUM SERUM 4.7 MEQ/L (3.5-5.1); SODIUM LEVEL 137 MEQ/L (136-145); TRIGLYCERIDES LEVEL 150 MG/DL (<150)
== END ==
LOC: M SFHCPLAZ 09:47
PROVIDERS: ATTEND Nurse Practitioner Adult Health
DX: Z00.00 Encounter for general adult medical examination without abnormal findings (principal); Z13.220 Encounter for screening for lipoid disorders

== ENCOUNTER → 2025-04-13 | Outpatient (CLI) | payer MEDICAID, OTHER ==
[~2025-04-13] MED LIST changes: +ACET-683 PO; +AMPH1CAP16; +CLIN-250 PO; +CLON0.2T; +CLON0.2T PO; +FLUO-365; +GABA-1172 PO; -GABA-843 PO; +LIDO1ADH93 TD; -LIDO5DIS41 TD; +META-10 PO; -META1TAB22 PO
== END ==
LOC: M EKG 11:07
PROVIDERS: ATTEND Nurse Practitioner Psychiatric/Mental Health
DX: M94.0 Chondrocostal junction syndrome [Tietze] (principal); F12.10 Cannabis abuse, uncomplicated; F41.1 Generalized anxiety disorder; Z79.899 Other long term (current) drug therapy; F90.2 Attention-deficit hyperactivity disorder, combined type

== ENCOUNTER 2025-06-14 11:31 | Emergency (ER) | payer MEDICAID, SELFPAY ==
[~2025-06-14] VITALS: Ht 167.6 cm; Wt 72.6 kg
[2025-06-14 15:10] VITALS: BP 108/62; TEMP 98.6; O2SAT 98
== END 2025-06-14 15:16 | disposition home or self-care (01) ==
LOC: M ED 11:31
DX: F41.9 Anxiety disorder, unspecified (principal); Z88.1 Allergy status to other antibiotic agents; Z88.8 Allergy status to other drugs, medicaments and biological substances; Z91.09 Other allergy status, other than to drugs and biological substances; Z79.1 Long term (current) use of non-steroidal anti-inflammatories (NSAID); Z79.2 Long term (current) use of antibiotics; Z79.899 Other long term (current) drug therapy